=== PATIENT | male | born 1975 | race African-American/Black ===

== ENCOUNTER 2016-08-27 13:16 | Emergency (ER) | payer OTHER ==
[2016-08-27 14:15] LABS: BASOPHIL 0.2 % (0-2); EOSINOPHIL 1.1 % (0-5); HCT 43.6 % (42.0-52.0); HGB 14.8 g/dl (13.2-18.0); MCH 31.8 pg (25.0-31.0); MCHC 33.9 g/dL (32.0-36.0); MCV 93.6 fL (78.0-100.0); MONOCYTE 8.9 % (0-12); MPV 10.8 fL (6.0-9.5); NEUTROPHIL 67.8 % (41-80); PLT 245 K/uL (150-400); RBC 4.66 M/uL (4.70-6.00); RDW 15.4 % (11.5-14.0); WBC 12.9 K/uL (4.0-10.5)
[2016-08-27 14:16] LABS: BILIRUBIN NEGATIVE (NEGATIVE); BLOOD TRACE-INTACT Ery/uL (NEGATIVE); CLARITY CLEAR (CLEAR); COLOR YELLOW (YELLOW); GLUCOSE (U) NORMAL (NORMAL); KETONE (U) NEGATIVE (NEGATIVE); LEUKOCYTES NEGATIVE Leu/uL (NEGATIVE); NITRITE NEGATIVE (NEGATIVE); PROTEIN 2+ mg/dL (NEGATIVE); SPECIFIC GRAVITY 1.025 (1.001-1.030); UROBILINOGEN 0.2 mg/dL (0.2-1.0)
[2016-08-27 14:22] LABS: MUCOUS LARGE
[2016-08-27 14:25] LABS: ALBUMIN 4.2 g/dL (3.5-5.0); BILIRUBIN - TOTAL 0.6 mg/dL (0.1-1.0); CREATININE 1.2 mg/dL (0.7-1.2); GLOBULIN (CALCULATION) 2.5 g/dL (2.2-4.2); POTASSIUM 3.5 mmol/L (3.5-5.1); TOTAL PROTEIN 6.7 g/dL (6.4-8.3)
== END 2016-08-27 16:30 | disposition home or self-care (01) ==
LOC: FER 13:16
PROVIDERS: Internal Medicine
DX: R19.7 Diarrhea, unspecified (principal); I10 Essential (primary) hypertension; R00.1 Bradycardia, unspecified
CPT/HCPCS: 36415; 80053; 81001; 83690; 84484; 85025; 93005

== ENCOUNTER 2017-02-28 18:59 | Emergency (ER) | payer OTHER ==
[2017-02-28 19:47] LABS: BASOPHIL 0.2 % (0-2); EOSINOPHIL 0.7 % (0-5); HCT 40.6 % (42.0-52.0); LYMPHOCYTE 22.4 % (15-48); MCHC 34.5 g/dL (32.0-36.0); MCV 92.9 fL (78.0-100.0); MONOCYTE 6.2 % (0-12); NEUTROPHIL 70.5 % (41-80); PLT 208 K/uL (150-400); RBC 4.37 M/uL (4.70-6.00); WBC 12.7 K/uL (4.0-10.5)
[2017-02-28 19:52] LABS: INR 1.04 (0.9-1.2); PROTHROMBIN TIME 12.7 SECONDS (11.4-13.2); PTT 29.2 SECONDS (24.3-32.1)
[2017-02-28 19:59] LABS: ALBUMIN 4.1 g/dL (3.5-5.0); BILIRUBIN - TOTAL 0.5 mg/dL (0.1-1.0); CREATININE 1.3 mg/dL (0.7-1.2); GLOBULIN (CALCULATION) 2.9 g/dL (2.2-4.2); TROPONIN T < 0.010 ng/mL
[2017-02-28 20:22] LABS: CKMB 5.17 ng/mL (0.97-4.94)
== END 2017-02-28 22:34 | disposition home or self-care (01) ==
LOC: FER 18:59
PROVIDERS: Emergency Medicine Emergency Medical Services
DX: I10 Essential (primary) hypertension (principal); F17.210 Nicotine dependence, cigarettes, uncomplicated; Z93.3 Colostomy status
CPT/HCPCS: 36415; 71010; 80053; 82550; 82553; 84484; 85025; 85610; 85730; 93005

== ENCOUNTER 2020-07-08 16:54 | Emergency (ER) | payer OTHER ==
[~2020-07-08 16:54] MED LIST: CARAFATE S500 MG/TSP PO; HYDRALAZINE HCL25 MG PO; HYDRALAZINE25 MG PO; NITROQUIK SL0.4 MG SL; NORVASC5 MG PO; TOPROL XL 50 MG50 MG PO; VASOTEC10 MG PO
[2020-07-08 18:44] LABS: BASOPHIL 0.3 % (0-2); EOSINOPHIL 1.4 % (0-5); HCT 42.6 % (42.0-52.0); HGB 14.4 g/dl (13.2-18.0); LYMPHOCYTE 19.4 % (15-48); MCH 31.5 pg (25.0-31.0); MCHC 33.8 g/dL (32.0-36.0); MCV 93.2 fL (78.0-100.0); MONOCYTE 8.3 % (0-12); MPV 12.4 fL (6.0-9.5); NEUTROPHIL 70.3 % (41-80); NRBC 0; PLT 240 K/uL (150-400); RBC 4.57 M/uL (4.70-6.00); RDW 14.5 % (11.5-14.0); WBC 13.6 K/uL (4.0-10.5)
[2020-07-08 18:57] LABS: ALBUMIN 2.9 g/dL (3.4-5.0); BILIRUBIN - TOTAL 0.5 mg/dL (0.2-1.0); BUN/CREAT RATIO (CALC) 6.1 RATIO; CREATININE 4.28 mg/dL (0.67-1.17); GLOBULIN (CALCULATION) 3.4 g/dL; POTASSIUM 2.7 mmol/L (3.5-5.1); TOTAL PROTEIN 6.3 g/dL (6.4-8.2)
[2020-07-08 19:44] LABS: INR 0.98 (0.9-1.2); PROTHROMBIN TIME 12.3 SECONDS (11.4-13.6); PTT 30.2 SECONDS (22.2-34.7)
[2020-07-08 20:00] LABS: MAGNESIUM 2.2 mg/dL (1.8-2.4)
[2020-07-08 22:05] LABS: BILIRUBIN NEGATIVE (NEGATIVE); BLOOD 2+ Ery/uL (NEGATIVE); CLARITY CLEAR (CLEAR); COLOR YELLOW (YELLOW); GLUCOSE (U) NORMAL (NORMAL); LEUKOCYTES NEGATIVE Leu/uL (NEGATIVE); NITRITE NEGATIVE (NEGATIVE); PROTEIN 3+ mg/dL (NEGATIVE); UROBILINOGEN 0.2 mg/dL (0.2-1.0); pH 6.5 (5.0-9.0)
== END 2020-07-09 02:10 | disposition other institution (70) ==
LOC: FER 16:54
PROVIDERS: Emergency Medicine
DX: I10 Essential (primary) hypertension (principal); I21.4 Non-ST elevation (NSTEMI) myocardial infarction; E87.6 Hypokalemia; N17.9 Acute kidney failure, unspecified; Z87.891 Personal history of nicotine dependence; Z20.822 Contact with and (suspected) exposure to COVID-19
CPT/HCPCS: 36415; 71045; 80053; 81001; 83735; 84100; 84443; 84484; 85025; 85610; 85730; 93005; J3490; U0002

== ENCOUNTER 2021-01-29 09:28 | Emergency (ER) | payer OTHER ==
[2021-01-29 11:12] LABS: BASOPHIL 0.3 % (0-2); EOSINOPHIL 1.6 % (0-5); HCT 38.9 % (42.0-52.0); HGB 12.7 g/dl (13.2-18.0); LYMPHOCYTE 11.3 % (15-48); MCH 31.7 pg (25.0-31.0); MCHC 32.6 g/dL (32.0-36.0); MONOCYTE 5.8 % (0-12); MPV 11.2 fL (6.0-9.5); NEUTROPHIL 80.7 % (41-80); NRBC 0; PLT 260 K/uL (150-400); RBC 4.01 M/uL (4.70-6.00); RDW 14.9 % (11.5-14.0); WBC 10.4 K/uL (4.0-10.5)
[2021-01-29 11:27] LABS: ALBUMIN 3.3 g/dL (3.4-5.0); BILIRUBIN - TOTAL 0.3 mg/dL (0.2-1.0); BUN/CREAT RATIO (CALC) 7.3 RATIO; CREATININE 3.68 mg/dL (0.67-1.17); GLOBULIN (CALCULATION) 3.1 g/dL; POTASSIUM 3.8 mmol/L (3.5-5.1); TOTAL PROTEIN 6.4 g/dL (6.4-8.2)
[2021-01-29 13:10] LABS: BILIRUBIN NEGATIVE (NEGATIVE); BLOOD TRACE-INTACT Ery/uL (NEGATIVE); CLARITY CLEAR (CLEAR); COLOR YELLOW (YELLOW); GLUCOSE (U) NORMAL (NORMAL); LEUKOCYTES NEGATIVE Leu/uL (NEGATIVE); NITRITE NEGATIVE (NEGATIVE); PROTEIN 3+ mg/dL (NEGATIVE); SPECIFIC GRAVITY 1.025 (1.001-1.030); UROBILINOGEN 0.2 mg/dL (0.2-1.0)
[2021-01-29 13:41] LABS: BACTERIA TRACE; URINARY RBC RARE; URINARY WBC RARE
== END 2021-01-29 14:16 | disposition home or self-care (01) ==
LOC: FER 09:28
PROVIDERS: Emergency Medicine
DX: K43.9 Ventral hernia without obstruction or gangrene (principal); Z98.890 Other specified postprocedural states
CPT/HCPCS: 36415; 80053; 81001; 84484; 85025; J3490

== ENCOUNTER 2021-12-24 20:57 | Emergency (ER) | payer OTHER ==
[2021-12-24 22:26] LABS: INFLUENZA A NAA NEGATIVE (NEGATIVE)
[2021-12-24 22:27] LABS: CORONAVIRUS 2019 SARS-COV-2 POSITIVE (NEGATIVE)
== END 2021-12-24 22:40 | disposition home or self-care (01) ==
LOC: FER 20:57
PROVIDERS: Emergency Medicine
DX: U07.1 COVID-19 (principal); I10 Essential (primary) hypertension
CPT/HCPCS: 99283; U0002